=== PATIENT | female | born 1960 | race Caucasian/White ===

== ENCOUNTER 2017-06-23 15:44 | Observation (INO) | payer BC ==
[2017-06-23] MEDS ORDERED: HYDROmorphone 1 MG/ML 1 ML SYRINGE IVP STA (16:15)
[2017-06-23] MEDS ORDERED: SODIUM CHLORIDE 0.9% 1,000 ML IV STA (16:15)
--- NOTE | 2017-06-23 16:20 | ED ---
General Adult HPI - General Chief complaint: Abdominal Pain Stated complaint: Abd Pain Time Seen by Provider: 06/23/17 16:05 Source: patient, family, RN notes reviewed Mode of arrival: ambulatory Limitations: no limitations - History of Present Illness Initial comments: Chief complaint and history of present illness a 56-year-old female here with her . The patient having on-again off-again pain to the right upper quadrant increasing for the past month. She was told 4 years ago that she has gallbladder problems get it out. Recently eating anything causes pain to the right upper quadrant. No nausea no vomiting no diarrhea at this time. - Related Data Home Medications Medication Instructions Recorded Confirmed Insulin Degludec [Tresiba 10 units SQ DAILY 06/23/17 06/23/17 Flextouch U-100] Allergies Allergy/AdvReac Type Severity Reaction Status Date / Time No Known Allergies Allergy Verified 06/23/17 16:49 Review of Systems ROS Statement: Those systems with pertinent positive or pertinent negative responses have been documented in the HPI. review of systems no visual acuity changes no sore throat no headache or neck pain no chest pain or shortness of breath she has discomfort from epigastric to the right upper quadrant which increases after eating. She has had some darker stool of late. Denies nausea vomiting. She had diarrhea before since subsided. No trouble urinating. No complaints of any neuro deficits all systems are reviewed. Past medical problems significant for having had her A1c checked last month it was elevated 10 she was placed on insulin shots 10 units daily. Patient's denying other medical problems. Her blood pressure at home and the doctor's office is normal here significantly elevated this be rechecked. The patient's surgeries include total hysterectomy and . She also was diagnosed thyroid nodules 3 years ago but never followed up. Strongly advised to have this rechecked. Possibility of malignancy. Family history father sinus cancer of unknown types. Patient denies ALLERGIES. Quit smoking over 40 years ago denies alcohol use ROS Other: All systems not noted in ROS Statement are negative. Past Medical History Past Medical History: Diabetes Mellitus History of Any Multi-Drug Resistant Organisms: None Reported Past Surgical History: Section, Hysterectomy Past Psychological History: No Psychological Hx Reported Smoking Status: Never smoker Past Alcohol Use History: None Reported Past Drug Use History: None Reported General Exam - General Exam Comments Initial Comments: General: The patient is awake and alert,here because of worsening discomfort to the right upper quadrant with the past month and especially this past several days. Vital signs temp 97.6 pulse 102 respiratory rate 20 pulse ox 96% room air blood pressure 214/98 this will be repeated. Eye: Pupils are equal, round and reactive to light, extra-ocular movements are intact ; there is normal conjunctiva bilaterally. No signs of icterus. Ears, nose, mouth and throat: There are moist mucous membranes and no oral lesions. Neck: The neck is supple, there is no tenderness thyroid not enlarged. No carotid bruit. Cardiovascular: There is a regular rate and rhythm. No murmur, rub or gallop is appreciated. Respiratory: Lungs are clear to auscultation, respirations are non-labored, breath sounds are equal. No wheezes, stridor, rales, or rhonchi. Gastrointestinal: positive Sanchez sign right upper quadrant. No organomegaly. No rebound or referred pain. Mild discomfort in epigastric deep palpation as well. Back: no complaint of back pain. Musculoskeletal: Normal ROM, no tenderness, There is no pedal edema. There is no calf tenderness or swelling. Sensation intact. Pulses equal bilaterally 2+. Neurological: denies numbness tingling or difficulty walking. No focal or lateralizing findings. Skin: Skin is warm and dry and no rashes or lesions are noted. Limitations: no limitations Course Vital Signs 06/23/17 06/23/17 06/23/17 15:55 16:44 18:28 Temperature 97.6 F 97.8 F Pulse Rate 102 H 101 H 80 Respiratory 20 18 18 Rate Blood Pressure 214/98 192/85 170/79 O2 Sat by Pulse 96 97 97 Oximetry Medical Decision Making - Medical Decision Making Medical decision making: Shows a white count of 8.4 hemoglobin 14.8 hematocrit of 43, potassium 3.9 sugar 145 total bilirubin mildly elevated 1.5 AST ALT both mildly elevated. Urine clean no signs of infection. Ultrasound of the abdomen was done and reviewed by radiologist his impression is exam is slightly limited by bowel gas. Cholelithiasis without sonographic evidence of cholecystitis. The gallbladder stone visualized measuring 1 cm. No evidence of Sanchez sign. Common bile duct within normal limits as visualized. The distal portions of blocked by bowel gas. No evidence of hydronephrosis or masses seen in the right kidney over the visualization was limited due to gas. As read by Dr. Amanda On reexamination patient continues to have discomfort to the right upper quadrant. Case discussed with on-call general surgeon Dr. Princess ly. Patient be admitted to medicine with surgical consultation. - Lab Data Result diagrams: 06/23/17 16:35 06/23/17 16:35 Lab Results 06/23/17 06/23/17 06/23/17 Range/Units 16:35 16:35 16:35 WBC 8.4 (3.8-10.6) k/uL RBC 4.97 (3.80-5.40) m/uL Hgb 14.8 (11.4-16.0) gm/dL Hct 43.1 (34.0-46.0) % MCV 86.6 (80.0-100.0) fL MCH 29.7 (25.0-35.0) pg MCHC 34.3 (31.0-37.0) g/dL RDW 12.4 (11.5-15.5) % Plt Count 289 (150-450) k/uL Neutrophils % 52 % Lymphocytes % 37 % Monocytes % 5 % Eosinophils % 3 % Basophils % 1 % Neutrophils # 4.4 (1.3-7.7) k/uL Lymphocytes # 3.1 (1.0-4.8) k/uL Monocytes # 0.4 (0-1.0) k/uL Eosinophils # 0.3 (0-0.7) k/uL Basophils # 0.1 (0-0.2) k/uL Sodium 139 (137-145) mmol/L Potassium 3.9 (3.5-5.1) mmol/L Chloride 102 (98-107) mmol/L Carbon Dioxide 24 (22-30) mmol/L Anion Gap 13 mmol/L BUN 13 (7-17) mg/dL Creatinine 0.65 (0.52-1.04) mg/dL Est GFR (MDRD) Af Amer >60 (>60 ml/min/1.73 sqM) Est GFR (MDRD) Non-Af >60 (>60 ml/min/1.73 sqM) Glucose 145 H (74-99) mg/dL Calcium 10.3 H (8.4-10.2) mg/dL Total Bilirubin 1.5 H (0.2-1.3) mg/dL AST 48 H (14-36) U/L ALT 60 H (9-52) U/L Alkaline Phosphatase 112 (38-126) U/L Total Protein 7.5 (6.3-8.2) g/dL Albumin 4.7 (3.5-5.0) g/dL Amylase 37 (30-110) U/L Lipase 78 (23-300) U/L Urine Color Light Yellow Urine Appearance Clear (Clear) Urine pH 5.5 (5.0-8.0) Ur Specific [place] 1.003 (1.001-1.035) Urine Protein Negative (Negative) Urine Glucose (UA) Negative (Negative) Urine Ketones Negative (Negative) Urine Blood Negative (Negative) Urine Nitrite Negative (Negative) Urine Bilirubin Negative (Negative) Urine Urobilinogen <2.0 (<2.0) mg/dL Ur Leukocyte Esterase Negative (Negative) Disposition Clinical Impression: Abdominal pain, Cholelithiasis Disposition: ADMITTED IP TO THIS [facility] Condition: Fair Referrals: Ye Victoria DO [Primary Care Provider] - 1-2 days
[2017-06-23 16:49] LABS: Basophils # (A) 0.1 k/uL (0-0.2); Basophils % (A) 1 %; CH 29.7; CHCM 34.4; Eosinophils # (A) 0.3 k/uL (0-0.7); Eosinophils % (A) 3 %; HCT 43.1 % (34.0-46.0); HDW 2.35; HGB 14.8 gm/dL (11.4-16.0); Luc # (Auto) 0.22; Luc % (Auto) 3; Lymphocytes # (A) 3.1 k/uL (1.0-4.8); Lymphocytes % (A) 37 %; MCH 29.7 pg (25.0-35.0); MCHC 34.3 g/dL (31.0-37.0); MCV 86.6 fL (80.0-100.0); Mean Platelet Volume 6.8; Monocytes # (A) 0.4 k/uL (0-1.0); Monocytes % (A) 5 %; Neutrophils # (A) 4.4 k/uL (1.3-7.7); Neutrophils % (A) 52 %; RBC 4.97 m/uL (3.80-5.40); RDW 12.4 % (11.5-15.5); WBC 8.4 k/uL (3.8-10.6); WBC (Perox) 8.59
[2017-06-23 16:54] LABS: Appearance,Urine Clear (Clear); Bilirubin,Urine Negative (Negative); Glucose,Urine (UA) Negative (Negative); Ketones,Urine Negative (Negative); Leukocyte Esterase,Urine Negative (Negative); Nitrite,Urine Negative (Negative); PH, Urine 5.5 (5.0-8.0); Protein,Urine Negative (Negative); Specific Gravity,Urine 1.003 (1.001-1.035); UA Billing (MACRO vs. MICRO) CHEM; Urobilinogen,Urine <2.0 mg/dL (<2.0)
[2017-06-23 16:59] LABS: ALT 60 U/L (9-52); AST 48 U/L (14-36); Alkaline Phosphatase 112 U/L (38-126); Amylase 37 U/L (30-110); Anion Gap 13 mmol/L; Blood Urea Nitrogen 13 mg/dL (7-17); Calcium 10.3 mg/dL (8.4-10.2); Carbon Dioxide 24 mmol/L (22-30); Chloride 102 mmol/L (98-107); Glucose 145 mg/dL (74-99); Non-African American GFR(MDRD) >60 (>60 ml/min/1.73 sqM); Potassium 3.9 mmol/L (3.5-5.1); Sodium 139 mmol/L (137-145); Total Bilirubin 1.5 mg/dL (0.2-1.3); Total Protein 7.5 g/dL (6.3-8.2)
--- NOTE | 2017-06-23 18:23 | XR ---
EXAMINATION TYPE: XR abdomen 2V DATE OF EXAM: 06/23/2017 5:05 PM CLINICAL HISTORY: Right upper quadrant abdominal pain. TECHNIQUE: Single supine KUB image of the abdomen is obtained. COMPARISON: None. FINDINGS: Scattered gas is seen in non-distended small bowel loops. Gas and fecal material is seen in non-distended colon. There are no abnormal calcifications appreciated. The lung bases are clear and the osseous structures are intact. IMPRESSION: Nonobstructive bowel gas pattern. No radiopaque calculi to suggest nephrolithiasis.
--- NOTE | 2017-06-23 18:25 | US ---
EXAMINATION TYPE: US abdomen limited DATE OF EXAM: 06/23/2017 COMPARISON: NONE CLINICAL HISTORY: Right upper quadrant pain. Very difficult/limited exam due to large amount of overl raymon bowel gas EXAM MEASUREMENTS: Liver Length: 15.4 cm Gallbladder Wall: 0.2 cm CBD: 0.5 cm Right Kidney: 10.9 x 4.7 x 5.4 cm Pancreas: Obscured by bowel gas Liver: Limited visualization due to overlying bowel, visualized portions appear heterogeneous Gallbladder: Stone visualized measuring 1.0 cm Evidence for sonographic Sanchez's sign: No CBD: wnl as visualized, distal portion obscured by bowel gas Right Kidney: Limited visualization due to gas, No hydronephrosis or masses seen IMPRESSION: Exam is slightly limited by bowel gas. Cholelithiasis without sonographic evidence of cho lecystitis.
[2017-06-23] MEDS ORDERED: ONDANSETRON 4 MG/2 ML VIAL IVP PRN (18:41)
[2017-06-23] MEDS ORDERED: NALOXONE 0.4 MG/ML 1 ML VIAL IV PRN (18:41)
[2017-06-23] MEDS: SODIUM CHLORIDE 0.9% 1,000 ML IV SCH (19:43)
[2017-06-23] MEDS: HYDROmorphone 1 MG/ML 1 ML SYRINGE IV PRN ×2 (19:44→22:44)
[2017-06-23 21:07] LABS: Glucose,Whole Blood 137 mg/dL (75-99)
[2017-06-23] MEDS: INSULIN LISPRO (humaLOG) 300 UNIT/3 ML VIAL SQ SCH (21:11)
[2017-06-24 00:40] VITALS: BMI 35.1
[2017-06-24] MEDS: HYDROmorphone 1 MG/ML 1 ML SYRINGE IV PRN ×2 (02:05→05:47)
[2017-06-24 06:38] LABS: Basophils % (A) 1 %; CH 29.6; CHCM 33.5; Eosinophils # (A) 0.2 k/uL (0-0.7); Eosinophils % (A) 3 %; HGB 13.5 gm/dL (11.4-16.0); Luc # (Auto) 0.15; Luc % (Auto) 3; Lymphocytes # (A) 2.2 k/uL (1.0-4.8); Lymphocytes % (A) 39 %; MCH 29.2 pg (25.0-35.0); MCHC 32.9 g/dL (31.0-37.0); MCV 88.7 fL (80.0-100.0); Mean Platelet Volume 6.7; Monocytes # (A) 0.3 k/uL (0-1.0); Monocytes % (A) 6 %; Neutrophils # (A) 2.7 k/uL (1.3-7.7); Neutrophils % (A) 48 %; RBC 4.62 m/uL (3.80-5.40); RDW 12.5 % (11.5-15.5); WBC 5.6 k/uL (3.8-10.6); WBC (Perox) 6.01
[2017-06-24 07:00] LABS: ALT 48 U/L (9-52); AST 38 U/L (14-36); Alkaline Phosphatase 93 U/L (38-126); Anion Gap 9 mmol/L; Blood Urea Nitrogen 9 mg/dL (7-17); Calcium 9.1 mg/dL (8.4-10.2); Carbon Dioxide 22 mmol/L (22-30); Chloride 108 mmol/L (98-107); Glucose 132 mg/dL (74-99); Non-African American GFR(MDRD) >60 (>60 ml/min/1.73 sqM); Sodium 139 mmol/L (137-145); Total Bilirubin 1.6 mg/dL (0.2-1.3); Total Protein 6.3 g/dL (6.3-8.2)
[2017-06-24] MEDS: SODIUM CHLORIDE 0.9% 1,000 ML IV SCH ×2 (07:40→08:35)
[2017-06-24 08:02] LABS: Glucose,Whole Blood 121 mg/dL (75-99)
[2017-06-24] MEDS: INSULIN LISPRO (humaLOG) 300 UNIT/3 ML VIAL SQ SCH ×4 (08:31→21:28)
[2017-06-24] MEDS: FAMOTIDINE 20 MG/2 ML VIAL IV SCH (08:31)
--- NOTE | 2017-06-24 09:10 | P.GSHP ---
History of Present Illness H&P Date: 06/24/17 Mrs. Mendoza is a 56-year-old white female who presents with a complaint of right upper quadrant abdominal discomfort. The pain started approximately 3 days ago and has been persistent in nature. She complains of crampy right upper quadrant pain. It does not radiate anyplace. She did not eat anything unusual and is uncertain as to what precipitated the pain. She has not had any diarrhea or constipation. She has not had any fever or chills. She had an ultrasound which revealed cholelithiasis. She has been told in the past that she needed to have her gallbladder removed. Her bilirubin is noted to be 1.6 and I discussed the case with GI agreed with us proceeding with a laparoscopic possible open cholecystectomy and this could bilirubin remains elevated and of concern postprocedure the would proceed with an ERCP. Past surgical history: 1. oophrectomy 2. 3. Total hysterectomy Past medical history: Negative Medications: Negative ALLERGIES: Negative Social history: Smoking: Negative Alcohol: Negative Review of systems: HEENT: Negative Lungs: Asthma Heart: Questionable murmur in the past GI: As above : Hysterectomy - Constitutional Constitutional: Reports as per HPI - Cardiovascular Comment: Questionable heart murmur by history in the remote past has never been treated for this - Respiratory Comment: asthma in the past - Gastrointestinal Gastrointestinal: Reports as per HPI - Genitourinary (Female) Genitourinary: Reports as per HPI - Integumentary Integumentary: Reports as per HPI - Psychiatric Psychiatric: Reports as per HPI Past Medical History Past Medical History: Diabetes Mellitus History of Any Multi-Drug Resistant Organisms: None Reported Past Surgical History: Section, Hysterectomy Past Psychological History: No Psychological Hx Reported Smoking Status: Never smoker Past Alcohol Use History: None Reported Past Drug Use History: None Reported - Past Family History Mother Family Medical History: Congestive Heart Failure (CHF) Father Family Medical History: Cancer Medications and Allergies Home Medications Medication Instructions Recorded Confirmed Type Insulin Degludec [Tresiba 10 units SQ DAILY 06/23/17 06/23/17 History Flextouch U-100] Allergies Allergy/AdvReac Type Severity Reaction Status Date / Time No Known Allergies Allergy Verified 06/23/17 16:49 Surgical - Exam Vital Signs Temp Pulse Resp BP Pulse Ox 97.6 F 102 H 20 214/98 96 06/23/17 15:55 06/23/17 15:55 06/23/17 15:55 06/23/17 15:55 06/23/17 15:55 - General well developed, moderate distress, obese - Eyes PERRL, normal ocular movement - ENT normal pinna, normal nares, normal mucosa, no hearing loss, no congestion - Neck no masses, trachea midline, no lymphadectomy, no venous distension - Respiratory normal expansion, normal respiratory effort, clear to auscultation - Cardiovascular Rhythm: regular Heart Sounds: normal: S1, S2 - Abdomen Tender right upper quadrant Abdomen: soft, tender - Neurologic normal coordination - Psychiatric oriented to time, oriented to person, oriented to place, speech is normal Results - Labs 06/24/17 06:17 06/24/17 06:17 Abnormal Lab Results - Last 24 Hours (Table) 06/23/17 06/23/17 06/24/17 Range/Units 16:35 21:02 06:17 Chloride 108 H (98-107) mmol/L Glucose 145 H 132 H (74-99) mg/dL POC Glucose (mg/dL) 137 H (75-99) mg/dL Calcium 10.3 H (8.4-10.2) mg/dL Total Bilirubin 1.5 H 1.6 H (0.2-1.3) mg/dL AST 48 H 38 H (14-36) U/L ALT 60 H (9-52) U/L 06/24/17 Range/Units 07:56 Chloride (98-107) mmol/L Glucose (74-99) mg/dL POC Glucose (mg/dL) 121 H (75-99) mg/dL Calcium (8.4-10.2) mg/dL Total Bilirubin (0.2-1.3) mg/dL AST (14-36) U/L ALT (9-52) U/L Diabetes panel 06/23/17 06/24/17 Range/Units 16:35 06:17 Sodium 139 139 (137-145) mmol/L Potassium 3.9 4.0 (3.5-5.1) mmol/L Chloride 102 108 H (98-107) mmol/L Carbon Dioxide 24 22 (22-30) mmol/L BUN 13 9 (7-17) mg/dL Creatinine 0.65 0.56 (0.52-1.04) mg/dL Glucose 145 H 132 H (74-99) mg/dL Calcium 10.3 H 9.1 (8.4-10.2) mg/dL AST 48 H 38 H (14-36) U/L ALT 60 H 48 (9-52) U/L Alkaline Phosphatase 112 93 (38-126) U/L Total Protein 7.5 6.3 (6.3-8.2) g/dL Albumin 4.7 3.8 (3.5-5.0) g/dL Calcium panel 06/23/17 06/24/17 Range/Units 16:35 06:17 Calcium 10.3 H 9.1 (8.4-10.2) mg/dL Albumin 4.7 3.8 (3.5-5.0) g/dL Pituitary panel 06/23/17 06/24/17 Range/Units 16:35 06:17 Sodium 139 139 (137-145) mmol/L Potassium 3.9 4.0 (3.5-5.1) mmol/L Chloride 102 108 H (98-107) mmol/L Carbon Dioxide 24 22 (22-30) mmol/L BUN 13 9 (7-17) mg/dL Creatinine 0.65 0.56 (0.52-1.04) mg/dL Glucose 145 H 132 H (74-99) mg/dL Calcium 10.3 H 9.1 (8.4-10.2) mg/dL Adrenal panel 06/23/17 06/24/17 Range/Units 16:35 06:17 Sodium 139 139 (137-145) mmol/L Potassium 3.9 4.0 (3.5-5.1) mmol/L Chloride 102 108 H (98-107) mmol/L Carbon Dioxide 24 22 (22-30) mmol/L BUN 13 9 (7-17) mg/dL Creatinine 0.65 0.56 (0.52-1.04) mg/dL Glucose 145 H 132 H (74-99) mg/dL Calcium 10.3 H 9.1 (8.4-10.2) mg/dL Total Bilirubin 1.5 H 1.6 H (0.2-1.3) mg/dL AST 48 H 38 H (14-36) U/L ALT 60 H 48 (9-52) U/L Alkaline Phosphatase 112 93 (38-126) U/L Total Protein 7.5 6.3 (6.3-8.2) g/dL Albumin 4.7 3.8 (3.5-5.0) g/dL - Imaging US - abdomen: report reviewed, image reviewed Assessment and Plan Plan: Impression/plan: 1. Right lower quadrant abdominal pain consistent with cholecystitis 2. Diabetes 3. Status post hysterectomy 4. Mildly elevated bilirubin this was discussed with GI who recommend proceeding with laparoscopic possible open cholecystectomy 5. Remote history of asthma Plan: 1. Medical management of diabetes 2. Laparoscopic possible open cholecystectomy Risks and benefits of the procedure been discussed with the patient and her . They understand that the risks include but are not limited to bleeding infection reaction to the anesthetic possible injury to the common bile duct and conversion to an open cholecystectomy. The mesh to proceed. They also understand that post procedure if bilirubin remains elevated she will be seen by the drier feeder and possible ERCP performed.
[2017-06-24] MEDS ORDERED: HEPARIN SODIUM,PORCINE 5,000 UNIT/ML 1 ML VIAL SQ ONE (09:30)
[2017-06-24 11:03] LABS: Hemoglobin A1C 9.3 % (4.2-6.1)
[2017-06-24] MEDS ORDERED: IV FLUID CONTINUATION 800 ML IV ONE (11:03)
[2017-06-24 11:35] LABS: Glucose,Whole Blood 120 mg/dL (75-99)
[2017-06-24] MEDS ORDERED: ESMOLOL 100 MG/10 ML VIAL ONE (11:55)
[2017-06-24] MEDS ORDERED: fentaNYL (PF) 50 MCG/ML 2 ML AMP ONE (11:55)
[2017-06-24] MEDS ORDERED: GLYCOPYRROLATE 0.2 MG/ML 2 ML VIAL ONE (11:55)
[2017-06-24] MEDS ORDERED: SUCCINYLCHOLINE CHLORIDE 100 MG/5 ML SYR IV ONE (11:55)
[2017-06-24] MEDS ORDERED: VECURONIUM 10 MG VIAL IV ONE (11:55)
[2017-06-24] MEDS ORDERED: MIDAZOLAM 2 MG/2 ML VIAL ONE (11:55)
[2017-06-24] MEDS ORDERED: NEOSTIGMINE 1 MG/ML 10 ML VIAL ONE (11:55)
[2017-06-24] MEDS ORDERED: PROPOFOL 10 MG/ML 20 ML VIAL IV ONE (11:55)
[2017-06-24] MEDS ORDERED: LIDOCAINE 1% INJ 10MG/ML (20 ML MDV) ONE (11:55)
[2017-06-24] MEDS ORDERED: ePHEDrine SULFATE/0.9% NACL/PF 50 MG/5 ML SYRINGE IV ONE (11:55)
[2017-06-24] MEDS: ceFAZolin 2 GM in SODIUM CHLORIDE 0.9% 100 ML IVPB SCH ×2 (11:57→18:40)
[2017-06-24] MEDS ORDERED: ceFAZolin 2,000 MG in DEXTROSE/WATER 1 50ML.BAG IVPB SCH (12:00)
--- NOTE | 2017-06-24 12:24 | P.DS ---
Providers Date of admission: 06/23/17 18:41 Attending physician: Jhony Escobar Consults: 06/23/17 18:41 Consult Physician Stat Consulting Provider: Sabrina Desai Consult Reason/Comments: Cholelithiasis Do you want consulting provider notified?: Already Contacted [facility] Course: Please refer to HPI Patient Condition at Discharge: Fair Plan - Discharge Summary New Discharge Prescriptions: New Omeprazole [PriLOSEC] 40 mg PO AC-BRKFST #14 capsule. No Action Insulin Degludec [Tresiba Flextouch U-100] 10 units SQ DAILY Discharge Medication List Insulin Degludec [Tresiba Flextouch U-100] 10 units SQ DAILY 06/23/17 [History] Omeprazole [PriLOSEC] 40 mg PO AC-BRKFST #14 capsule. 06/24/17 [Rx] Follow up Appointment(s)/Referral(s): Ye Victoria DO [Primary Care Provider] - 1-2 days
--- NOTE | 2017-06-24 12:24 | P.HPIM ---
History of Present Illness 6-year-old female came in with complaints of right upper quadrant pain crampy in nature about the 8 x 10 in severity nonradiating. Patient was ordered by surgery and patient does have tenderness in the right upper quadrant patient was diagnosed with cholecystitis and patient is going for cholecystectomy today. Patient is comparing of nausea vomiting. Follow-up which improved at this point of time pain improved as well. Patient denied any diarrhea. ULTRASOUND of the abdomen did not show cholecystitis but did show cholelithiasis. Patient doesn't have any fever or leukocytosis. Although clinically patient does have significant tenderness in the right upper quadrant because of which surgery believes patient has cholecystitis and is going for cholecystectomy today. If patient post surgeries cleared by general surgery patient will be discharged. Antibiotics and pain medications as per general surgery. Patient does have gastritis symptoms as well going on for sometime because of which I'll discharge her on Prilosec for 14 days. Review of Systems PHYSICAL EXAMINATION: GENERAL: The patient is alert and oriented x3, not in any acute distress. Well developed, well nourished. HEENT: Pupils are round and equally reacting to light. EOMI. No scleral icterus. No conjunctival pallor. Normocephalic, atraumatic. No pharyngeal erythema. No thyromegaly. CARDIOVASCULAR: S1 and S2 present. No murmurs, rubs, or gallops. PULMONARY: Chest is clear to auscultation, no wheezing or crackles. ABDOMEN: She does have right upper quadrant tenderness no rebound no rigidity. No palpable organomegaly. MUSCULOSKELETAL: No joint swelling or deformity. EXTREMITIES: No cyanosis, clubbing, or pedal edema. NEUROLOGICAL: Gross neurological examination did not reveal any focal deficits. SKIN: No rashes. Past Medical History Past Medical History: Diabetes Mellitus History of Any Multi-Drug Resistant Organisms: None Reported Past Surgical History: Section, Hysterectomy Past Psychological History: No Psychological Hx Reported Smoking Status: Former smoker Past Alcohol Use History: None Reported Past Drug Use History: None Reported - Past Family History Mother Family Medical History: Congestive Heart Failure (CHF) Father Family Medical History: Cancer Medications and Allergies Home Medications Medication Instructions Recorded Confirmed Type Insulin Degludec [Tresiba 10 units SQ DAILY 06/23/17 06/24/17 History Flextouch U-100] Allergies Allergy/AdvReac Type Severity Reaction Status Date / Time latex Allergy Rash/Hives Verified 06/24/17 11:30 Physical Exam Vitals: Vital Signs Temp Pulse Pulse Pulse Resp BP BP 06/24/17 11:11 98.1 F 83 18 172/84 06/24/17 07:54 97.7 F 73 16 140/75 06/24/17 01:45 98.7 F 82 18 142/72 06/23/17 19:05 97.9 F 84 20 165/80 06/23/17 18:52 97.5 F L 95 18 153/67 06/23/17 18:28 97.8 F 80 18 170/79 06/23/17 16:44 101 H 18 192/85 06/23/17 15:55 97.6 F 102 H 20 214/98 Pulse Ox 06/24/17 11:11 95 06/24/17 07:54 95 06/24/17 01:45 95 06/23/17 19:05 97 06/23/17 18:52 94 L 06/23/17 18:28 97 06/23/17 16:44 97 06/23/17 15:55 96 Intake and Output 06/23/17 06/24/17 06/24/17 22:59 06:59 14:59 Intake Total 100 Balance 100 Intake: IV 100 Other: # Voids 2 2 Weight 87.09 kg Results CBC & Chem 7: 06/24/17 06:17 06/24/17 06:17 Labs: Abnormal Lab Results - Last 24 Hours (Table) 06/23/17 06/23/17 06/24/17 Range/Units 16:35 21:02 06:17 Chloride 108 H (98-107) mmol/L Glucose 145 H 132 H (74-99) mg/dL POC Glucose (mg/dL) 137 H (75-99) mg/dL Calcium 10.3 H (8.4-10.2) mg/dL Total Bilirubin 1.5 H 1.6 H (0.2-1.3) mg/dL AST 48 H 38 H (14-36) U/L ALT 60 H (9-52) U/L 06/24/17 06/24/17 Range/Units 07:56 11:15 Chloride (98-107) mmol/L Glucose (74-99) mg/dL POC Glucose (mg/dL) 121 H 120 H (75-99) mg/dL Calcium (8.4-10.2) mg/dL Total Bilirubin (0.2-1.3) mg/dL AST (14-36) U/L ALT (9-52) U/L Thrombosis Risk Factor Assmnt - Choose All That Apply Each Factor Represents 1 point: Age 41-60 years, Minor surgery planned, Obesity (BMI >25) Thrombosis Risk Factor Assessment Total Risk Factor Score: 3 Thrombosis Risk Factor Assessment Level: Moderate Risk Assessment and Plan Plan: #1 cholelithiasis with possibility of acute cholecystitis: Patient will undergo cholecystectomy, antibiotics and pain management as per surgery. #2 diabetes with us patient's blood sugars appear to be fairly controlled will continue her home regimen of Tresiba. #3 hypercalcemia: Due to intravascular volume depletion expected to improve with IV fluids. Actually did improve with IV fluids. #4 mildly elevated liver enzymes: Secondary to cholelithiasis. #5 gastritis or peptic ulcer disease: 2 weeks of Protonix.
[2017-06-24] MEDS ORDERED: LIDOCAINE 1% (PF) 10 MG/ML (30 ML SDV) SQ ONE ×2 (12:25)
[2017-06-24] MEDS ORDERED: LACTATED RINGERS 1,000 ML IV ONE (13:27)
--- NOTE | 2017-06-24 13:34 | P.OP ---
Date of Procedure: 06/24/17 Preoperative Diagnosis: Cholelithiasis with cholecystitis Postoperative Diagnosis: Same, intrahepatic gallbladder Procedure(s) Performed: Laparoscopic cholecystectomy Implants: Anesthesia: CASSI Surgeon: Sabrina Desai Labor Service Representative #1: Grace Saab Estimated Blood Loss (ml): 10 IV fluids (ml): 800 Pathology: other (gallbladder) Condition: stable Disposition: PACU Indications for Procedure: Patient is a 56-year-old white female who presented to the emergency room with right upper quadrant abdominal pain and cholelithiasis. She has to have acute and chronic cholecystitis. Operative Findings: Intrahepatic gallbladder with cholelithiasis Description of Procedure: The patient was taken to the operating room and following induction of general anesthesia the abdomen was prepped and draped in a sterile fashion. A #5 Veress needle was placed in the left upper quadrant just below the ribs. The abdomen was insufflated to 15 mmHg pressure. The needle was withdrawn and a #5 Optiview camera was placed. Following this the #5 camera was placed in the infraumbilical area. The #5 port site in the left upper quadrant was changed a #12 port. 2 #5 ports were placed in the right upper quadrant through which the gallbladder could be retracted. However was very ptotic and in order to facilitate visualization of the gallbladder and additional #5 port was placed in the left mid abdomen through which a blunt probe was placed and used to retract the liver. The gallbladder was noted to be very intrahepatic. It was retracted and was carefully peritoneal attachments were carefully taken down both anteriorly and posteriorly. The area of the cystic duct and cystic artery were carefully identified. To facilitate this identification a 30 scope was utilized. Reynaldo were placed on the cystic duct and this was divided. Following this reynaldo were placed on the cystic artery and this was likewise divided. The gallbladder was carefully taken down from its peritoneal attachments to the liver bed using the electrocautery device. The gallbladder was then placed in a Pleatman sac and brought up through the #12 port site. After being assured that hemostasis was attained the fossa was well irrigated. The #12 port was removed and a Eric Jennings device was placed. The incision was closed using 0 Vicryl suture with the aid of the Eric Jennings device. After this had been accomplished the other #5 ports were removed under direct visualization with no evidence of any active bleeding. The patient tolerated the procedure in stable condition. All instrument and sponge counts were correct at the end of the case.
--- NOTE | 2017-06-24 13:36 | P.DS ---
Providers Date of admission: 06/23/17 18:41 Attending physician: Jhony Escobar Consults: 06/23/17 18:41 Consult Physician Stat Consulting Provider: Sabrina Desai Consult Reason/Comments: Cholelithiasis Do you want consulting provider notified?: Already Contacted Primary care physician: Ye Victoria Patient Condition at Discharge: Fair Plan - Discharge Summary New Discharge Prescriptions: New Omeprazole [PriLOSEC] 40 mg PO AC-BRKFST #14 capsule. No Action Insulin Degludec [Tresiba Flextouch U-100] 10 units SQ DAILY Discharge Medication List Insulin Degludec [Tresiba Flextouch U-100] 10 units SQ DAILY 06/23/17 [History] Omeprazole [PriLOSEC] 40 mg PO AC-BRKFST #14 capsule. 06/24/17 [Rx] Follow up Appointment(s)/Referral(s): Ye Victoria DO [Primary Care Provider] - 1-2 days Sabrina Desai MD [STAFF PHYSICIAN] - 1 Week Activity/Diet/Wound Care/Special Instructions: No heavy lifting Do not drive until seen by Dr. Coreas Patient had an ultrasound of the thyroid as an outpatient Patient have repeat liver function studies as an outpatient prior to being seen in Dr. Coreas's office Discharge Disposition: HOME SELF-CARE
[2017-06-24 14:15] LABS: Glucose,Whole Blood 158 mg/dL (75-99)
[2017-06-24] MEDS ORDERED: ONDANSETRON 4 MG/2 ML VIAL IVP ONE (14:40)
[2017-06-24] MEDS ORDERED: HYDROmorphone 1 MG/ML 1 ML SYRINGE IVP ONE (14:46)
[2017-06-24] MEDS ORDERED: KETOROLAC 30 MG/ML 1 ML VIAL IVP ONE (14:47)
[2017-06-24 17:16] LABS: Glucose,Whole Blood 136 mg/dL (75-99)
[2017-06-24 21:17] LABS: Glucose,Whole Blood 137 mg/dL (75-99)
[2017-06-25] MEDS: HYDROmorphone 1 MG/ML 1 ML SYRINGE IV PRN (00:08)
[2017-06-25] MEDS: SODIUM CHLORIDE 0.9% 1,000 ML IV SCH ×2 (00:10→05:33)
[2017-06-25] MEDS: ceFAZolin 2 GM in SODIUM CHLORIDE 0.9% 100 ML IVPB SCH ×2 (00:10→06:37)
[2017-06-25 05:30] VITALS: PULSE 97
[2017-06-25 07:21] LABS: Glucose,Whole Blood 168 mg/dL (75-99)
[2017-06-25] MEDS: INSULIN LISPRO (humaLOG) 300 UNIT/3 ML VIAL SQ SCH (07:27)
[2017-06-25 09:11] VITALS: BP 120/59; RESP 18; TEMP 98.8
[2017-06-25] MEDS ORDERED: ACETAMINOPHEN TAB 325 MG TAB PO PRN (09:22)
[2017-06-25] MEDS: FAMOTIDINE 20 MG/2 ML VIAL IV SCH (09:45)
== END 2017-06-25 12:05 | disposition home or self-care (01) ==
LOC: EC 15:44 → INTOOBSV 18:41 → 6PED 18:41
PROVIDERS: ADMIT Internal Medicine; ATTEND Internal Medicine
DX: Z79.4 Long term (current) use of insulin (principal); E11.9 Type 2 diabetes mellitus without complications; K80.10 Calculus of gallbladder with chronic cholecystitis without obstruction; J45.909 Unspecified asthma, uncomplicated; K29.70 Gastritis, unspecified, without bleeding; Z87.891 Personal history of nicotine dependence; Z91.040 Latex allergy status; E83.52 Hypercalcemia; E86.9 Volume depletion, unspecified; K27.9 Peptic ulcer, site unspecified, unspecified as acute or chronic, without hemorrhage or perforation; Q44.1 Other congenital malformations of gallbladder; K81.2 Acute cholecystitis with chronic cholecystitis; D86.9 Sarcoidosis, unspecified
CPT/HCPCS: 47562; 96374; 99285; 96372; 96375; 96376 ×2; 36415; 93005; 88304; 80053 ×2; 82150; 83036; 83690; 85025 ×2; 81003; 74020; 76705; G0378 ×3; J2250; J1644; J2710; J0690 ×2; J2405; J2001 ×2; J3010; J1885; J1170 ×3; J0330; J2704

== ENCOUNTER → 2017-06-29 | Outpatient (CLI) | payer BC ==
[2017-06-29 14:27] LABS: ALT 37 U/L (9-52); AST 21 U/L (14-36); Alkaline Phosphatase 94 U/L (38-126); Anion Gap 11 mmol/L; Blood Urea Nitrogen 9 mg/dL (7-17); Calcium 9.4 mg/dL (8.4-10.2); Carbon Dioxide 25 mmol/L (22-30); Chloride 101 mmol/L (98-107); Glucose 161 mg/dL (74-99); Non-African American GFR(MDRD) >60 (>60 ml/min/1.73 sqM); Potassium 3.6 mmol/L (3.5-5.1); Sodium 137 mmol/L (137-145); Total Bilirubin 1.4 mg/dL (0.2-1.3); Total Protein 6.3 g/dL (6.3-8.2)
--- NOTE | 2017-06-29 14:45 | US ---
EXAMINATION TYPE: US thyroid st tissue head/neck DATE OF EXAM: 06/29/2017 COMPARISON: NONE CLINICAL HISTORY: Thyroid Nodule E04.2, Enlarged Thyroid E05.10. GLAND SIZE: Right Lobe: 2.9 x 1.2 x 1.1 cm Overall Parenchyma: homogenous Left Lobe: 3.6 x 0.8 x 1.0 cm Overall Parenchyma: homogeneous Isthmus Thickness: 0.2 cm NODULES RIGHT: # of nodules measured on right: 1 1. 0.8 X 0.6 x 0.4 cm hyperechoic solid nodule at the lower pole with well-defined margins. This n odule is wider than tall and shows intranodular vascularity. Prior size: [employer] here LEFT: # of nodules measured on left: 0 ISTHMUS: # of nodules measured in the isthmus: 0 Bilateral neck scanned, no evidence of lymphadenopathy. IMPRESSION: Solitary hyperechoic 8mm right thyroid lobe nodule within the nonenlarged homogeneous thyroid gland. Follow-up as clinically warranted.
== END ==
LOC: RADUSWWP 13:41
PROVIDERS: ATTEND Surgery
DX: Z13.29 Encounter for screening for other suspected endocrine disorder (principal); E04.1 Nontoxic single thyroid nodule
CPT/HCPCS: 76536; 80053

== ENCOUNTER → 2017-09-08 | Outpatient (CLI) | payer BC ==
--- NOTE | 2017-09-08 13:19 | XR ---
EXAMINATION TYPE: XR lumbar spine 2 or 3V DATE OF EXAM: 09/08/2017 CLINICAL HISTORY: Low back pain for 2 weeks. Lumbar though with sciatica. TECHNIQUE: Frontal and lateral images of the lumbar spine are obtained. COMPARISON: None FINDINGS: There are 5 lumbar type vertebral bodies identified. The lumbar spine shows satisfactory alignment without evidence of acute fracture or dislocation. Vertebral body heights and disk space he ights are within normal limits. Minimal multilevel anterior spurring is seen. Mild vascular calcifica tion in the overlying soft tissue is noted. IMPRESSION: Minimal multilevel anterior spurring is seen in the lumbar spine.
== END | disposition home or self-care (01) ==
LOC: RADXRMAIN 12:42
PROVIDERS: ATTEND Physician Assistant
DX: M46.06 Spinal enthesopathy, lumbar region (principal); M54.42 Lumbago with sciatica, left side
CPT/HCPCS: 72100